=== PATIENT | male | born 1970 | race Caucasian/White ===

== ENCOUNTER 2022-12-28 12:49 | Emergency (ER) | payer SELFPAY ==
--- NOTE | 2022-12-28 12:38 | ECG_ITS ---
APPROVED REPORT Exam: Resting ECG HR:102 bpm ECG Measurements Heart Rate 102 AXES DC 149 P 59 QRSd 91 QRS 38 QT 328 T 52 QTc 387 Conclusion SINUS TACHYCARDIA ABNORMAL RHYTHM ECG UNCONFIRMED REPORT Electronically signed by : Kumar Renteria MD 01/01/2023 08:35:24
[2022-12-28 12:49] VITALS: BP 139/99; PULSE 99; RESP 18; TEMP 36.8; O2SAT 100; BMI 29.1
--- NOTE | 2022-12-28 12:58 | XR_ITS ---
FINAL REPORT CLINICAL HISTORY: chest pain FINDINGS: A single portable view of the chest was obtained. The heart size and pulmonary vascularity are within normal limits. The mediastinum is within normal limits. No acute pulmonary abnormality is identified. There is dextroscoliosis. IMPRESSION: No active cardiopulmonary disease. Reviewed, Interpreted and Dictated by Linden Brown III, MD Transcribed by Evelia Zamora Authenticated and [facility]
--- NOTE | 2022-12-28 13:10 | [facility].EDGENADL ---
Discharge Plan Disposition Patient Disposition: Home, Self-Care Chief Complaint: Chest Pain Prescriptions Prescriptions: No Action No Known Home Medications Activity Restrictions/Add. Instructions Additional Instructions/Restrictions: Return for difficulty breathing chest pain or any other concerns within the next 8 hours. Otherwise follow-up with your primary care physician within next few days Clinical Impressions Clinical Impression: Chest pain Discharge ED Provider: Edgardo [facility] HPI General Chief complaint: Chest Pain Stated complaint: chest pain Time Seen by Provider: 12/28/22 13:00 History of Present Illness HPI narrative: 52-year-old male with left-sided chest pain wall pain for 3 days. He says that the pain began during intercourse with his when he pulled a muscle. He has pain that is worse with movement and point tender abdomen to his left chest. Not coughing up blood no vomiting no fevers. No leg swelling. No recent travel. No radiation to his back or down his arms. No history of myocardial infarction however does have cardiac history and family Related Data Home Medications Medication Instructions Recorded Confirmed No Known Home Medications 12/28/22 12/28/22 [facility] Disclaimer: The information contained in this section may have been updated after the patient was seen, as this information can be updated by other users. Social History Smoking Status: Never smoker alcohol intake: never current occupational status: other Travel in the last 8 weeks: Inside the [place] ROS Obtained: Yes All systems reviewed & no additional complaints except as documented Constitutional Constitutional: Denies fatigue and Denies fever(s) Eyes Eyes: Denies dry eyes ENT Ears, Nose, Mouth, and Throat: Denies dry mouth Cardiovascular Cardiovascular: Denies diaphoresis and Denies dyspnea Respiratory Respiratory: Denies dyspnea Gastrointestinal Gastrointestingal: Denies heartburn Genitourinary Male Genitourinary: Denies flank pain Musculoskeletal Musculoskeletal: Denies arthralgias Integumentary/Breasts Skin/Breast: Denies redness and Denies rash Neurologic Neurologic: Denies confusion Endocrine Endocrine: Denies fatigue Hematologic/Lymphatic Henatologic/Lymphatic: Denies easy bleeding Physical Exam General General appearance: alert and in no apparent distress Eye Eye exam: Present PERRL and EOMI ENT ENT exam: Present normal exam and normal oropharynx Neck Neck exam: Present normal inspection Chest Chest inspection: Present symmetric chest wall rise and other (Mild left-sided chest wall tenderness) Respiratory Respiratory exam: Present normal lung sounds bilaterally; Absent respiratory distress Cardiovascular Cardiovascular exam: Present regular rate and normal rhythm Abdominal Exam Abdominal exam: Present soft; Absent distention, tenderness, guarding, rebound, Ortiz's sign or tenderness at McBurney's Point Rectal Exam Rectal exam: Present deferred Back Exam Back exam: Present normal inspection Neurological Exam Neurological exam: Present alert and oriented X3 Psychiatric Psychiatric exam: Present normal affect and normal mood Skin Skin exam: Present warm, dry and intact Lymphatic Lymphatic Findings: no adenopathy Medical Decision Making Medical Records Medical records reviewed: Yes I reviewed the patient's medical records. Fernie Inquiry Pt receiving controlled substance: No Fernie was queried for this patient: No Vital Signs: 12/28/22 12:49 Temperature 98.3 F Temperature Source Oral Pulse Rate [Left Radial] 99 H Respiratory Rate 18 Blood Pressure [Right Arm] 139/99 H Blood Pressure Mean [Right Arm] 112 Blood Pressure Source [Right Arm] Automatic Cuff Blood Pressure Position [Right Arm] Sitting 02 Sat by Pulse Oximetry 100 Lab Data Lab Results 12/28/22 12:54: WBC 6.7, RBC 5.08, Hgb 15.7, Hct 47.4, MCV 93.3, MCH 31.0, M
[2022-12-28 13:14] LABS: Basophils % 0.5 % (0.1-2.0); Eosinophils # 0.2 K/mm3 (0.0-0.4); Eosinophils % 2.8 % (0.1-12.0); Hematocrit 47.4 % (42.0-52.0); Hemoglobin 15.7 g/dL (14.1-18.0); Lymphocytes # 1.9 K/mm3 (0.7-4.5); Lymphocytes % 28.1 % (10-50); Mean Corpuscular HGB Conc 33.2 g/dL (31.8-35.4); Mean Corpuscular Volume 93.3 fl (80-94); Monocytes # 0.4 K/mm3 (0.1-1.0); Monocytes % 5.5 % (1.7-9.3); Neutrophils # 4.2 K/mm3 (1.8-7.8); Platelet Count 268 K/mm3 (142-424); Red Blood Count 5.08 M/mm3 (4.60-6.20); Red Cell Distribution Width 12.9 % (11.5-17.5); White Blood Count 6.7 K/mm3 (4.8-10.8)
[2022-12-28 13:15] LABS: Chloride 102 mmol/L (98-107); Potassium 4.4 mmoL/L (3.5-5.1); Sodium 138 mmol/L (136-145)
[2022-12-28 13:18] LABS: Anion Gap 12.4 mEq/L (5-15); Blood Urea Nitrogen 16 mg/dl (9-20); Calcium 8.8 mg/dl (8.4-10.2); Carbon Dioxide 28 mmol/L (22.0-30.0); Creatinine Clearance Estimated 132 mL/min (50-200); Estimated Glomerular Filt Rate 89 ml/min (>60); GFR (African American) 107 ML/MIN (>60); Glucose 129 mg/dl (74-100)
[2022-12-28 13:31] LABS: Troponin I < 0.01 ng/ml (0.00-0.034)
[2022-12-28 13:48] VITALS: BP 140/93; PULSE 96; RESP 16; TEMP 36.6
== END 2022-12-28 13:51 | disposition home or self-care (01) ==
PROVIDERS: Emergency Provider Emergency Medicine
DX: R07.9 Chest pain, unspecified (principal)
CPT/HCPCS: 71045; 80048; 84484; 85025; 93005; 96374; 99285